=== PATIENT | female | born 1950 | race Caucasian/White ===

== ENCOUNTER 2019-08-10 20:02 | Inpatient (IN) | payer MEDICARE, MEDICAID ==
[2019-08-10 20:27] LABS: #Basophils 0.1 thou/uL (0.0-0.2); #Eosinphils 0.5 thou/uL (0.0-0.7); #Lymphocytes 3.2 thou/uL (1.20-3.40); #Monocytes 0.7 thou/uL (0.11-0.59); #Neutrophils 4.7 thou/uL (1.40-6.50); %Eosinophils 5.9 % (0.0-10.0); %Lymphocytes 35.3 % (21.0-51.0); %Monocytes 7.1 % (0.0-10.0); %Neutrophils 50.7 % (42.0-75.0); Hemoglobin 8.1 g/dL (12.0-16.0); Mean Corpuscular HGB CONC 35.5 g/dL (32.0-36.0); Mean Corpuscular Hemoglobin 36.3 pg (27.0-31.0); Mean Platelet Volume 6.5 fL (7.4-10.4); Platelet Count 258 thou/uL (130-400); RBC Distribution Width 12.9 % (11.5-14.5); Red Blood Cell (RBC) Count 2.24 mill/uL (4.20-5.40); White Blood Cell (WBC) Count 9.2 thou/uL (4.8-10.8)
[2019-08-10 20:49] LABS: ALT (SGPT) 16 U/L (8-55); AST (SGOT) 22 U/L (5-34); Alkaline Phosphatase 64 U/L (40-110); Anion Gap 11 mmol/L (10-20); BUN (Urea Nitrogen) 18 mg/dL (9.8-20.1); Bilirubin, Total 0.2 mg/dL (0.2-1.2); Calc. Creatinine Clearance 0 mL/min (70-130); Calcium 9.3 mg/dL (7.8-10.44); Carbon Dioxide 27 mmol/L (23-31); Chloride 106 mmol/L (98-107); Estimated GFR-MDRD 74; Globulin 2.9 g/dL (2.4-3.5); Glucose 104 mg/dL (80-115); Potassium 3.4 mmol/L (3.5-5.1); Protein, Total 6.9 g/dL (6.0-8.3); Sodium 141 mmol/L (136-145)
[2019-08-10] MEDS ORDERED: Pantoprazole 40 MG VIAL ONE (21:11)
[2019-08-10 21:18] LABS: Bacteria/HPF None Seen HPF (None Seen); Bilirubin Negative (Negative); Blood, Urine Negative (Negative); Clarity Clear (Clear); Glucose, Urine (Dipstick) Normal (Negative); Leukocyte 75 Leu/uL (Negative); Nitrite Negative (Negative); Protein, Urine (Dipstick) Negative (Neg-Trace); RBC/HPF 0-3 HPF (0-3); Squamous Epithelial 0-3 HPF (0-3); Urobilinogen Normal mg/dL (Less than 2)
[2019-08-10] MEDS ORDERED: Potassium Chloride 20 MEQ TAB PO SCH (21:45)
--- NOTE | 2019-08-10 22:10 | PDOC.FPRHP ---
- History of Present Illness Chief Complaint: see below - Allergies/Adverse Reactions Allergies Allergy/AdvReac Type Severity Reaction Status Date / Time codeine Allergy Intermediate Verified 08/10/19 23:20 Sulfa (Sulfonamide Allergy Verified 08/10/19 23:20 Antibiotics) - Home Medications Medication Instructions Recorded Confirmed Type Acetaminophen/Diphenhydramine 2 each PO HS 08/10/19 08/10/19 History [Tylenol Pm Ex-Strength Caplet] DULoxetine [Cymbalta] 60 mg PO DAILY 08/10/19 08/10/19 History Gabapentin 600 mg PO HS 08/10/19 08/10/19 History Levothyroxine Sodium 75 mcg PO HS 08/10/19 08/10/19 History Lisinopril/Hydrochlorothiazide 1 tablet PO DAILY 08/10/19 08/10/19 History [Lisinopril-Hctz 20-12.5 mg Tab] - History PMHx: PSHx: FHx: Social: - Vital signs BP: [] HR: [] RR: [] Tmax: [] Pox: []% on [] Wt: [] FMR H&P: Results - Labs Result Diagrams: 08/10/19 20:21 08/10/19 20:21 Lab results: WBC 9.2 thou/uL (4.8-10.8) 08/10/19 20:21 Hgb 8.1 g/dL (12.0-16.0) L 08/10/19 20:21 Hct 22.9 % (36.0-47.0) L 08/10/19 20:21 MCV 102.0 fL (78.0-98.0) H 08/10/19 20:21 Plt Count 258 thou/uL (130-400) 08/10/19 20:21 Neutrophils % 50.7 % (42.0-75.0) 08/10/19 20:21 Sodium 141 mmol/L (136-145) 08/10/19 20:21 Potassium 3.4 mmol/L (3.5-5.1) L 08/10/19 20:21 Chloride 106 mmol/L (98-107) 08/10/19 20:21 Carbon Dioxide 27 mmol/L (23-31) 08/10/19 20:21 BUN 18 mg/dL (9.8-20.1) 08/10/19 20:21 Creatinine 0.77 mg/dL (0.6-1.1) 08/10/19 20:21 Glucose 104 mg/dL (80-115) 08/10/19 20:21 Calcium 9.3 mg/dL (7.8-10.44) 08/10/19 20:21 Total Bilirubin 0.2 mg/dL (0.2-1.2) 08/10/19 20:21 AST 22 U/L (5-34) 08/10/19 20:21 ALT 16 U/L (8-55) 08/10/19 20:21 Alkaline Phosphatase 64 U/L (40-110) 08/10/19 20:21 Serum Total Protein 6.9 g/dL (6.0-8.3) 08/10/19 20: Albumin 4.0 g/dL (3.4-4.8) 08/10/19 20:21 Urine Ketones Negative mg/dL (Negative) 08/10/19 21:05 Urine Blood Negative (Negative) 08/10/19 21:05 Urine Nitrite Negative (Negative) 08/10/19 21:05 Ur Leukocyte Esterase 75 Lety/uL (Negative) A 08/10/19 21:05 Urine RBC 0-3 HPF (0-3) 08/10/19 21:05 Urine WBC 4-6 HPF (0-3) A 08/10/19 21:05 Ur Squamous Epith Cells 0-3 HPF (0-3) 08/10/19 21:05 Urine Bacteria None Seen HPF (None Seen) 08/10/19 21:05 R H&P: Upper Level - Plan Date/Time: 08/10/192207 PCP: in [place] HPI: Patient comes in for generalized going on for about 3 days. She states she usually walks about a 3 miles a day but yesterday she was so weak she had trouble walking to the restroom. She has had dark stools for 3 days, denies bright red blood in stool. She states she takes Tylenol every night, additionally she takes naproxen about 3 days a week for joint pain. She has mild abdominal pressure which comes and goes, has not had any for the last 24 hours. She denies SOB, chest pain, pain the L arm or neck. She denies any unilateral weakness or slurred speech. She has never had endoscopy. She states she takes Lisinopril for having BP higher in 1 arm than the other, denies any symptoms of weakness when raising arms above the head. PMH: HTN, hypothyroidism PSH: hip, knee, c/s x2 Meds: Lisinopril, levothyroxine Allergies: sulfa Soc Hx: denies smoking, alcohol, drugs Fm Hx: denies heart disease or bleeding disorders. REVIEW OF SYSTEMS: Gen: no fever, chills, or sweats Neuro: denies headache Eyes: no visual changes ENT: no hearing changes, no sore throat, no congestion Resp: denies cough, SOB Card: no chest pain, + palpitations on occasion GI: see hpi MSK: no myalgias, no joint pain/stiffness Skin: no rash, no erythema Vitals: T98.7 R18 P85 BP 118/63 99 on RA PHYSICAL EXAMINATION: General: NAD, alert and oriented x3 HEENT: PERRLA, EOMI, normal sclera, oropharynx without erythema or exudate Neck: Supple. Full ROM. Heart/Cardiovascular System: +1/6 murmur, Cap refill < 3 seconds, no rub, no murmur Lungs/Respiratory System: CTA-B, no resp distress Abdomen/Gastro-Intestinal System: no abdominal tenderness, normal bowel sounds, hemoccult negative Extremities: Warm extremities. No cyanosis or edema Neuro: No gross deficits appreciated. CN 2-12 grossly intact, NIHSS: 0 Psychiatry: Awake, Alert and cooperative with exam Skin: No lesions, rashes, or ulcers Musculoskeletal: Full ROM A/P: # Symptomatic Anemia 2/2 suspected upper GI bleed - NSAID use - No bright red blood, no hx endoscopy - Protoinx 80mg BID, fluids - Transfuse for Hgb <7 - Iron studies, Vit B12, folate - GI consulted, EGD in AM, recs appreciated # Hypokalemia - replete # HTN, Hypothyroidism - home meds Fluids: LR 100ml/hr Code: full PPx: protonix Dispo: Anticipate d/c in 1-2 days pending scope results Addendum - Attending - Attending Attestation Date/Time: 08/10/19 4855 I personally evaluated the patient and discussed the management with Dr. Villanueva. I agree with the History, Examination, Assessment and Plan documented above with any addition or exceptions noted below.
[2019-08-10] MEDS ORDERED: Acetaminophen 325 MG TAB PO PRN (22:31)
[2019-08-10] MEDS ORDERED: Calcium Carbonate 500 MG ChewTAB PO PRN (22:31)
[2019-08-10] MEDS ORDERED: Ondansetron ODT 4 MG TAB PO PRN (22:31)
[2019-08-10] MEDS ORDERED: Ondansetron PF 4 MG/2 ML Vial IVP PRN (22:31)
[2019-08-10] MEDS ORDERED: Acetaminophen 650 MG Suppository PR PRN (22:31)
[2019-08-10] MEDS ORDERED: Bisacodyl 5 MG TAB PO PRN (22:31)
[2019-08-10] MEDS ORDERED: Bisacodyl 10 MG SUPP PR PRN (22:31)
[2019-08-10] MEDS ORDERED: Senokot S 8.6-50 MG TAB PO PRN (22:31)
[2019-08-10] MEDS ORDERED: Sodium Chloride 0.9% (PF) 10 ML VIAL FS PRN (22:36)
[2019-08-10 22:54] LABS: Iron 97 ug/dL (50-170); Iron Binding Capacity, Total 310 mcg/dL (265-497)
[2019-08-10] MEDS: Lactated Ringer's 1,000 ML IV SCH (23:01)
[2019-08-10 23:15] LABS: Band 6 % (5-11); Eosinophils 6 % (0-10); Lymphocytes 33 % (21-51); Monocytes 5 % (0-10); Myelocyte 2 % (0-0)
[2019-08-10 23:16] LABS: Macrocytosis SLIGHT = 6-15 cells (100X) (0-5/hpf)
[2019-08-10 23:20] LABS: Ferritin 121.35 ng/mL (10-291); Thyroid Stimulating Hormone 9.9021 uIU/mL (0.35-4.94)
[2019-08-10] MEDS ORDERED: diphenhydrAMINE 25 MG CAP PO PRN (23:28)
[2019-08-10] MEDS ORDERED: Levothyroxine Sodium 75 MCG TAB PO SCH (23:45)
[2019-08-11] MEDS ORDERED: Acetaminophen 500 MG TAB PO SCH ×2 (00:15→21:00)
[2019-08-11] MEDS ORDERED: diphenhydrAMINE 25 MG CAP PO SCH ×3 (00:15→21:00)
[2019-08-11] MEDS: Acetaminophen 500 MG TAB PO SCH ×2 (00:22→22:54)
[2019-08-11 02:24] VITALS: BMI 29.0
[2019-08-11 05:55] LABS: #Eosinphils 0.4 thou/uL (0.0-0.7); #Lymphocytes 2.2 thou/uL (1.20-3.40); #Monocytes 0.6 thou/uL (0.11-0.59); #Neutrophils 4.3 thou/uL (1.40-6.50); %Basophils 0.5 % (0.0-1.0); %Eosinophils 5.5 % (0.0-10.0); %Lymphocytes 29.4 % (21.0-51.0); %Monocytes 8.2 % (0.0-10.0); %Neutrophils 56.5 % (42.0-75.0); Hemoglobin 6.8 g/dL (12.0-16.0); Mean Corpuscular HGB CONC 35.5 g/dL (32.0-36.0); Mean Corpuscular Hemoglobin 36.7 pg (27.0-31.0); Mean Platelet Volume 6.8 fL (7.4-10.4); Platelet Count 212 thou/uL (130-400); RBC Distribution Width 13.1 % (11.5-14.5); Red Blood Cell (RBC) Count 1.84 mill/uL (4.20-5.40); White Blood Cell (WBC) Count 7.6 thou/uL (4.8-10.8)
--- NOTE | 2019-08-11 05:58 | PDOC.EVN ---
Event Note - Event Note Event Note: repeat hemoglobin now 6.8. tx 1u PRBCs. Upgrade to inpt.
[2019-08-11] MEDS ORDERED: Levothyroxine Sodium 25 MCG TAB PO SCH (06:00)
--- NOTE | 2019-08-11 08:10 | PDOC.FM ---
- Subjective Subjective: NAEO but Hgb down to 6.8 this AM. Patient denies any abdominal pain, hematemesis , hematochezia or melena since admission. States lightheadedness has improved as well. - Objective MAR Reviewed: Yes Vital Signs & Weight: Vital Signs (12 hours) Temp Pulse Pulse Resp BP BP Pulse Ox 08/11/19 07:22 97.8 F 64 62 16 112/71 116/80 95 08/11/19 07:05 97.6 F 63 18 101/68 95 08/11/19 04:36 98.3 F 73 18 103/64 96 08/11/19 00:07 98.1 F 66 18 106/70 94 L 08/10/19 22:31 97.3 F L 69 18 111/70 99 Weight Weight 71.894 kg I&O: 08/10/19 08/11/19 08/12/19 06:59 06:59 06:59 Intake Total 1280 Balance 1280 Result Diagrams: 08/11/19 05:25 08/10/19 20:21 Phys Exam - Physical Examination Constitutional: NAD HEENT: moist MMs Neck: supple, full ROM Respiratory: clear to auscultation bilateral Cardiovascular: RRR, no significant murmur Gastrointestinal: positive bowel sounds Musculoskeletal: no edema Neurological: non-focal, 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 -Transfusing 1U PRBCs for Hgb of 6.8 this AM. -Iron studies & B12 WNLs. Folate pending. -GI consulted & plans to do an EGD this AM. Appreciate recs. # Hypokalemia -3.4 on admission with repeat pending this AM s/o repletion # HTN, Hypothyroidism - Continue home meds once able to take PO Fluids: LR 100ml/hr Code: full VTE PPx: SCDs GI PPx: protonix Dispo: Anticipate d/c in 1-2 days pending scope results
[2019-08-11 08:54] LABS: Anion Gap 10 mmol/L (10-20); BUN (Urea Nitrogen) 15 mg/dL (9.8-20.1); Calc. Creatinine Clearance 83 mL/min (70-130); Calcium 8.3 mg/dL (7.8-10.44); Carbon Dioxide 25 mmol/L (23-31); Chloride 112 mmol/L (98-107); Estimated GFR-MDRD 79; Glucose 83 mg/dL (80-115); Sodium 143 mmol/L (136-145)
[2019-08-11] MEDS: DULoxetine 60 MG CAP PO SCH (08:54)
[2019-08-11] MEDS: Lisinopril/Hydrochlorothiazide 20 mg/12.5 mg Tablet PO SCH (08:54)
[2019-08-11] MEDS ORDERED: Lisinopril 2.5 MG TAB PO SCH (09:00)
[2019-08-11 09:14] LABS: Free T4 (Free Thyroxine) 0.72 ng/dL (0.70-1.48)
[2019-08-11] MEDS: Pantoprazole 40 MG VIAL IVP SCH ×2 (09:24→22:58)
[2019-08-11] MEDS ORDERED: PROPOFOL 200 MG/20 ML VIAL ONE (12:07)
[2019-08-11] MEDS ORDERED: Lidocaine 1% PF 5 ML VIAL ONE (12:07)
[2019-08-11] MEDS ORDERED: Ondansetron HCl/PF 4 MG/2 ML Vial IVP PRN (12:19)
[2019-08-11] MEDS ORDERED: Promethazine HCl 25 MG/ML VIAL IM PRN (12:19)
[2019-08-11] MEDS ORDERED: Promethazine HCl 25 MG/ML VIAL SLOW IVP PRN (12:19)
[2019-08-11 13:55] LABS: Mean Corpuscular HGB CONC 36.4 g/dL (32.0-36.0); Mean Corpuscular Hemoglobin 36.9 pg (27.0-31.0); Mean Platelet Volume 6.4 fL (7.4-10.4); Platelet Count 203 thou/uL (130-400); RBC Distribution Width 13.7 % (11.5-14.5); Red Blood Cell (RBC) Count 2.16 mill/uL (4.20-5.40); White Blood Cell (WBC) Count 6.6 thou/uL (4.8-10.8)
--- NOTE | 2019-08-11 14:18 | OP ---
DATE OF PROCEDURE: 08/11/2019 PROCEDURE PERFORMED: Esophagogastroduodenoscopy with biopsy. PREOPERATIVE DIAGNOSIS: A 68-year-old female presents with melena, anemia due to blood loss. She underwent esophagogastroduodenoscopy. POSTOPERATIVE DIAGNOSES: 1. Normal esophagus. 2. Small shallow ulcer, gastric antrum. 3. Shallow ulcer in the duodenal bulb. At the time of endoscopy, the stomach was completely empty and no active bleeding seen any recent bleeding. DESCRIPTION OF PROCEDURE: The patient was placed on her left lateral position and was given sedation by Anesthesia Department. A Pentax video gastroscope under direct vision passed down the oropharynx past the GE junction into the stomach and subsequently into the descending duodenum. The esophageal mucosa appeared normal. In the GE junction, no lesion seen. The stomach was completely free of any blood. Retroflexion failed to show any pathology in fundus or cardia. In the gastric body, no lesion seen. There was small shallow ulcer of the gastric antrum. Also mild gastritis seen. In the incisura angularis, no lesion seen. The scope advanced into the duodenal bulb, descending duodenum. There was a shallow ulceration over the bulb. The ulcer base appeared very clean. No stigmata of recent bleeding seen. A biopsy was obtained from the gastric antrum and gastric body. The stomach decompressed and the scope removed. RECOMMENDATIONS: 1. Clear liquid diet today. 2. Colonoscopy tomorrow. 3. Follow up hemoglobin and hematocrit and transfuse p.r.n. Job ID: [id number]
[2019-08-11] MEDS: Lactated Ringer's 1,000 ML IV SCH ×2 (15:24→19:24)
[2019-08-11] MEDS ORDERED: GoLYTELY 4,000 ml Bottle PO SCH (17:00)
[2019-08-11] MEDS ORDERED: Levothyroxine Sodium 75 MCG TAB PO SCH (21:00)
[2019-08-12] MEDS: Lactated Ringer's 1,000 ML IV SCH (01:13)
[2019-08-12 05:23] LABS: #Eosinphils 0.3 thou/uL (0.0-0.7); #Lymphocytes 2.3 thou/uL (1.20-3.40); #Monocytes 0.6 thou/uL (0.11-0.59); #Neutrophils 2.8 thou/uL (1.40-6.50); %Basophils 0.7 % (0.0-1.0); %Eosinophils 5.4 % (0.0-10.0); %Lymphocytes 38.3 % (21.0-51.0); %Neutrophils 46.7 % (42.0-75.0); Hemoglobin 7.5 g/dL (12.0-16.0); Mean Corpuscular HGB CONC 35.5 g/dL (32.0-36.0); Mean Corpuscular Hemoglobin 35.9 pg (27.0-31.0); Mean Platelet Volume 6.2 fL (7.4-10.4); Platelet Count 206 thou/uL (130-400); Red Blood Cell (RBC) Count 2.08 mill/uL (4.20-5.40); White Blood Cell (WBC) Count 6.1 thou/uL (4.8-10.8)
--- NOTE | 2019-08-12 07:02 | PDOC.FM ---
- Subjective Subjective: Mrs. Waller had gotten back to room after colonoscopy and reports feeling well. She has no concerns and is anxious to go home. - Objective Vital Signs & Weight: Vital Signs (12 hours) Temp Pulse Resp BP BP Pulse Ox 08/12/19 06:10 97.6 F 76 18 114/69 95 08/12/19 04:27 98.1 F 61 16 118/72 97 08/11/19 20:16 98.0 F 61 18 124/73 97 08/11/19 19:42 97 Weight Weight 71.894 kg I&O: 08/11/19 08/12/19 08/13/19 06:59 06:59 06:59 Intake Total 4460 Balance 4460 Result Diagrams: 08/12/19 05:10 08/11/19 08:22 Phys Exam - Physical Examination Constitutional: NAD normal effort Neurological: non-focal Psychiatric: normal affect Skin: normal turgor Dx/Plan - Plan Plan: # Symptomatic Anemia 2/2 suspected upper GI bleed -Likely 2/2 NSAID use -Continue Protonix BID -s/p 1 u prbc. Hgb 7.5 this am, slight decrease but could be dilutional -GI consulted, appreciate recommendations. EGD done 08/10 with gastric ulcer not bleeding, colonoscopy with polyp removed, no evidence of bleed # Hypokalemia, improved # HTN, Hypothyroidism - Continue home meds once able to take PO Fluids: SL Code: full VTE PPx: SCDs GI PPx: protonix Dispo: Appreciate GI recs Addendum - Attending - Attending Attestation Date/Time: 08/12/19 1122 I personally evaluated the patient and discussed the management with Dr. Jane. I agree with the History, Examination, Assessment and Plan documented above with any addition or exceptions noted below. Patient doing well. Has just returned from colonoscopy. Continue Protonix. ADAT. Awaiting further recs from GI but hopeful discharge is in the near future.
--- NOTE | 2019-08-12 07:28 | CON ---
DATE OF CONSULTATION: 08/11/2019 REASON FOR CONSULTATION: Melena, anemia due to blood loss. HISTORY OF PRESENT ILLNESS: Azalea Waller is a very pleasant 68-year-old female with history of hypertension and hypothyroidism. She does have a history of arthritis and has had previous right hip replacement and left knee replacement. She takes naproxen at least 3 times a week on a regular basis for her arthralgias. The patient has been in [place] since May of 2019. Her hometown is [place], [place], and usually comes here to spend time in winter with the family and goes back to [place] during summer months. The patient developed black tarry stool approximately 4 days ago. The stools are black and tarry. She also has some mild epigastric abdominal discomfort and apparently dyspepsia. No heartburn. No nausea or vomiting. The patient had a tarry stool for the last 3 to 4 days and also started feeling weak. She normally walks up to 3 miles a day. However, started feeling weak, generalized weakness, and also had some mild dyspnea and mild dizziness. She came to the ER last night and was found to be anemic. The admitting CBC showed hemoglobin 8.1, which has dropped to 6.8; hematocrit 22.9, dropping down to 19.1. Interestingly, her MCV is 102. She has no significant alcohol abuse. The patient will be transfused. The patient has had no stool today. She has abdominal pain. No nausea or vomiting. She usually feels dizzy when she is sitting up, but today she is not feeling dizzy anymore. She had no prior history of any ulcer disease. No prior history of acid reflux. Her bowel movements are once a week and been like this for many years. She never had a colonoscopy. No relevant history. ALLERGIES: SULFA, CODEINE. SOCIAL HISTORY: The patient does not smoke or drink alcohol. PAST MEDICAL HISTORY: 1. Hypertension. 2. Hypothyroidism. PAST SURGICAL HISTORY: 1. Left knee replacement. 2. Right hip replacement. 3. Cervical spine surgery in 2016. MEDICATIONS: List was reviewed, which include: 1. Levothyroxine. 2. Lisinopril. 3. She also takes Tylenol PM for sleep and pain over the last several months. 4. Naproxen 3 times a week for arthralgias. FAMILY HISTORY: Grandmother had some kind of cancer, but the site is unclear. Apparently, her grandmother had a colostomy and she is not sure what was the reason for colostomy. REVIEW OF SYSTEMS: 10-point system reviewed. CONSTITUTIONAL: She has been feeling tired, lack of energy, and fatigue over the last several days. No history of fever. No history any weight loss. HEAD: No chronic headache. Has been feeling dizzy lately most likely from bleeding and blood loss. EYES: No diplopia. No impaired vision. EARS: No hearing loss. No pain. NOSE: No nosebleed. THROAT: No sore throat or coughing. NECK: No stiffness or limitation of movement. LUNGS: No chronic coughing. No hemoptysis. No dyspnea. CARDIOVASCULAR: No chest pain. No palpitation. No dyspnea, orthopnea, PND. GI: Mild abdominal discomfort, abdominal pain, dyspepsia. No nausea, vomiting. History of tarry stool. History of constipation for several years and has a BM every 7 days. : No dysuria or hematuria. MUSCULOSKELETAL: Nonrelevant. NEUROENDOCRINE: Nonrelevant. HEMATOLOGIC: Nonrelevant. PHYSICAL EXAMINATION: GENERAL: She appears very comfortable. She is awake, alert, oriented to time, place, and person. VITAL SIGNS: She is afebrile. Pulse is 64, blood pressure 116/80. HEENT: Conjunctivae are clear. NECK: Soft and supple. She has a scar over the left side of the neck. No thyromegaly. CARDIOVASCULAR: First and second heart sounds heard. LUNGS: Clear to auscultation. ABDOMEN: Soft. Abdomen is mildly tender over the epigastric area. There is no rebound or guarding. EXTREMITIES: Reveal no edema. LABORATORY DATA: On admission, CBC, WBC 9200, hemoglobin 8.1, hematocrit 22.9, MCV 102, and platelet count is 258,000, polymorphs 50, bands 6, lymphocytes 35, and monocytes 7. Chem-7; slightly low potassium 4.1, otherwise lytes are normal. BUN is 18, creatinine is 0.77, glucose 104, and calcium 9.3. Iron is 97, TIBC 310, ferritin 121.35, bilirubin 0.2, AST 22, ALT 16, alkaline phosphatase 64, albumin 4. Lipase 38. Vitamin B12 of 363. TSH is slightly high at 9.9021 CLINICAL IMPRESSION: 1. A 68-year-old female with history of black tarry stool over the last 3 to 4 days. She has mild abdominal discomfort. No nausea or vomiting. most likely from upper gastrointestinal bleeding. 2. Anemia, which is macrocytic with normal vitamin B12 level. 3. Hypertension. 4. Hypothyroidism. 5. Cervical spine surgery. 6. Right hip replacement. 7. Left knee replacement. RECOMMENDATIONS: 1. Continue IV PPI. 2. Follow up H and H. 3. Transfuse p.r.n. 4. EGD later on today and I will make further recommendations. Job ID: [id number]
[2019-08-12] MEDS ORDERED: Ondansetron HCl/PF 4 MG/2 ML Vial IVP PRN (08:59)
[2019-08-12] MEDS ORDERED: Promethazine HCl 25 MG/ML VIAL IM PRN (08:59)
[2019-08-12] MEDS ORDERED: Promethazine HCl 25 MG/ML VIAL SLOW IVP PRN (08:59)
[2019-08-12] MEDS ORDERED: EPHEDRINE 25 MG/5 ML SYRINGE ONE ×2 (09:17→12:05)
--- NOTE | 2019-08-12 09:41 | OP ---
DATE OF PROCEDURE: 08/12/2019 PROCEDURE PERFORMED: Colonoscopy with biopsy/polypectomy. INDICATION FOR PROCEDURE: Melena, anemia, relatively negative upper endoscopy showing only small ulcers in the antrum and duodenal bulb. DESCRIPTION OF PROCEDURE: After the risks and benefits of the procedure were explained to the patient including risks of bleeding, infection, perforation, reactions to anesthesia, aspiration and/or pain, informed consent was obtained. The patient was then taken to the endoscopy suite, where a deep sedation was administered via propofol and anesthesia support. Once the patient was adequately sedated, a digital rectal examination was performed followed by introduction of the standard colonoscope, which was then advanced to the terminal ileum without difficulty. The quality of the prep was good with adequate visualization of the colonic mucosa achieved. The colonoscope was then slowly withdrawn with careful examination of the colonic mucosa at that time. The patient tolerated the procedure well with no immediate perioperative complications. Upon conclusion of the procedure, all equipment was removed from the patient and she was transferred to PACU in satisfactory condition. FINDINGS: Digital rectal exam: Normal findings were seen on external examination. Colon findings: Normal-appearing mucosa was seen within the terminal ileum with no evidence of active/recent bleeding or blood. Normal-appearing mucosa was then seen at the ileocecal valve as well as the appendiceal orifice. Normal-appearing mucosa was then seen in the cecum, ascending colon, transverse colon, and descending colon. In the distal descending and sigmoid colons, multiple small- and large-mouthed diverticula were seen with no evidence of active or recent bleeding seen in this region. Careful examination of each of the diverticula did not reveal any blood clots or high-risk stigmata of recent bleeding. A 2- to 3-mm polyp was then seen in the rectum and completely removed with biopsy forceps. It was placed in a specimen jar and sent to Pathology for further evaluation. Small internal hemorrhoids were seen on rectal retroflexion. IMPRESSION: 1. Gxsuhrvr-[id number] sigmoid diverticulosis without evidence of active or recent bleeding. 2. A 2- to 3-mm rectal polyp, status post complete polypectomy with biopsy forceps. 3. Small internal hemorrhoids. 4. No etiology for the patient's anemia/melena was seen during this examination. RECOMMENDATIONS: 1. We would continue to trend her H and H and transfuse as necessary to maintain an H and H of 7/21. 2. Continue to monitor clinically for signs of active GI bleeding. 3. We will continue the patient on PPI 40 mg b.i.d. 4. We will avoid any anticoagulation if possible for the next 24 to 48 hours, then can restart if clinically appropriate. 5. We would follow up on the biopsy results of the gastric ulcerations as this is a more likely reason for her melena. 6. If the patient continues to have downtrending H and H and given the bland findings on the upper endoscopy, I would then consider an outpatient capsule endoscopy for further evaluation and/or tagged red cell scan. Job ID: [id number]
[2019-08-12] MEDS: DULoxetine 60 MG CAP PO SCH (10:29)
[2019-08-12] MEDS: Pantoprazole 40 MG VIAL IVP SCH (10:30)
[2019-08-12] MEDS: Lisinopril/Hydrochlorothiazide 20 mg/12.5 mg Tablet PO SCH (10:39)
[2019-08-12 11:38] VITALS: BP 107/61; TEMP 98.1
[2019-08-12] MEDS ORDERED: PROPOFOL 200 MG/20 ML VIAL ONE (12:05)
[2019-08-12] MEDS ORDERED: Lidocaine 1% PF 5 ML VIAL ONE (12:05)
[2019-08-12] MEDS ORDERED: Pantoprazole 40 MG VIAL IVP SCH (21:00)
--- NOTE | 2019-08-13 01:34 | DIS ---
DATE OF ADMISSION: 08/11/2019 DATE OF DISCHARGE: 08/12/2019 RESIDENT: Gina Jane DO ADMITTING ATTENDING: Kaiden Garcia MD DISCHARGE ATTENDING: Rigo Greer MD. CONSULTS: GI. PROCEDURES: 08/11/2019, EGD with biopsy showed a small shallow ulcer in the gastric antrum, mild gastritis, shallow ulceration over the duodenal bulb with a clean ulcer base. Biopsy obtained from the gastric antrum and gastric body, and stomach was completely free of blood. 08/12/2019, colonoscopy with biopsy/polypectomy. [id number] sigmoid diverticulosis without evidence of active or recent bleeding; 2 to 3 mm rectal polyp, status post complete polypectomy with biopsy forceps; small internal hemorrhoids; no etiology for patient's melena seen during this particular examination. PRIMARY DIAGNOSIS: 1. Symptomatic anemia secondary to suspected upper gastrointestinal bleed due to NSAID use. 2. Gastric Ulcer SECONDARY DIAGNOSES: 1. Hypokalemia. 2. Hypertension. 3. Hypothyroidism. DISCHARGE MEDICATIONS: 1. Duloxetine 60 mg p.o. daily. 2. Tylenol P.M. Extra-Strength two p.o. at bedtime. 3. Lisinopril/hydrochlorothiazide 20/12.5 mg one tablet p.o. daily. 4. Gabapentin 600 mg p.o. at bedtime. 5. Levothyroxine 100 mcg p.o. daily. 6. Protonix 40 mg p.o. b.i.d. Discontinued medications. Levothyroxine 75 mcg p.o. daily. HISTORY OF PRESENT ILLNESS: A 68-year-old female presented for generalized weakness for three days, associated with dark stools. Patient takes naproxen for joint pain. No bright red blood per rectum. Patient was admitted for symptomatic anemia due to suspected upper GI bleed. During hospitalization, laboratory studies were significant for initial hemoglobin of 8.1, which downtrended to 6.8. She then received 1 unit of packed red blood cells. Discharge hemoglobin was 7.5 with discharge hematocrit of 21, MCV 101, platelets 206, and WBC 6.1. Patient's initial potassium was 3.4, which corrected to 4.0. Iron 97, TIBC 310, percent saturation 31, and ferritin 121. Vitamin B12 is 363, homocystine 8.9. TSH 6.59, free T4 is 0.72, and free T3 is 2.18. Gastroenterology was consulted with endoscopic results as found noted above. Patient's symptoms had improved and she was stable for discharge. Her Synthroid dose was increased. This was discussed with patient. Plan for followup in 3 days with [facility]. Patient will need repeat H and H check with this visit. Patient will also need a followup TSH in 6 weeks. DISPOSITION: Stable. DISCHARGE INSTRUCTIONS: 1. Location: Home. 2. Diet: Regular. 3. Activity: As tolerated. 4. Followup: Follow up with [facility] in 3 days. Job ID: [id number] [id number]
[2019-08-13 15:12] LABS: Hematocrit 22.4 % (34.0-46.6); RBC Folate Test Component 2000 ng/mL (>498)
[2019-08-14 00:07] LABS: Methylmalonic Acid 198 nmol/L (0-378)
== END 2019-08-12 16:51 | disposition home or self-care (01) | DRG 378 ==
LOC: ERS 20:02 → T4-B 21:15 → OBSVTOIN 08-11 05:57
PROVIDERS: ADMIT Family Medicine; ATTEND Family Medicine
PROC: 0DB78ZX Excision of Stomach, Pylorus, Via Natural or Artificial Opening Endoscopic, Diagnostic (ICD-10-PCS; principal; 2019-08-11)
PROC: 0DBP8ZX Excision of Rectum, Via Natural or Artificial Opening Endoscopic, Diagnostic (ICD-10-PCS; 2019-08-12)
DX: K92.2 Gastrointestinal hemorrhage, unspecified (principal); K57.32 Diverticulitis of large intestine without perforation or abscess without bleeding; D62 Acute posthemorrhagic anemia; K25.9 Gastric ulcer, unspecified as acute or chronic, without hemorrhage or perforation; E87.6 Hypokalemia; I10 Essential (primary) hypertension; R29.700 NIHSS score 0; E03.9 Hypothyroidism, unspecified; K29.70 Gastritis, unspecified, without bleeding; Z96.652 Presence of left artificial knee joint; Z96.641 Presence of right artificial hip joint; K62.1 Rectal polyp; K64.8 Other hemorrhoids; T39.395A Adverse effect of other nonsteroidal anti-inflammatory drugs [NSAID], initial encounter; Z88.2 Allergy status to sulfonamides; Z88.8 Allergy status to other drugs, medicaments and biological substances
CPT/HCPCS: 36415; 36430; 80048; 80053; 81003; 81015; 82274; 82607; 82728; 82747; 83090; 83540; 83550; 83690; 83921; 84439; 84443; 84481; 85025; 85060; 86850; 86900; 86901; 88305; 88312; 93005; C9113; J2001; J2704; P9016; Q0163